=== PATIENT | female | born 1950 | race Caucasian/White ===

== ENCOUNTER 2022-02-28 13:06 | Emergency (ER) | payer OTHER, SELFPAY ==
[2022-02-28 13:22] VITALS: BP 168/78; PULSE 80; RESP 18; TEMP 36.1; O2SAT 97; BMI 22.9
[2022-02-28] MEDS: Acetaminophen 325 MG TABLET 650 MG PO (13:34)
--- OUTSIDE RECORDS SUMMARY | 2022-02-28 15:27 | XMS_ITS | Continuity of Care Document ---
:1950 Author Organization [facility] Address [address] [place] [address]- Care Team Providers
--- NOTE | 2022-02-28 16:10 | ED.EXTPRO ---
HPI - Extremity Problem General Chief complaint: Extremity Injury, Upper Stated complaint: R wrist inj Time Seen by Provider: 02/28/22 15:41 Source: patient Mode of arrival: ambulatory Limitations: no limitations History of Present Illness HPI Narrative: Patient presents emergency department for evaluation of right wrist pain. She states that she slipped on the last 2 steps of her stairs catching herself in weight on to her right wrist. She denies any head strike with this. Denies any loss of consciousness. Denies any numbness or tingling to the arm or hand. Pain is localized throughout the wrist. Is made worse with movement. Has swelling and bruising. Denies any prior injury to this wrist. Related Data Previous Rx's Medication Instructions Recorded tramadol 50 mg tablet 50 mg PO Q8H PRN pain #10 tabs 02/28/22 Allergies Allergy/AdvReac Type Severity Reaction Status Date / Time latex [LATEX] Allergy Mild RASH Unverified 02/07/20 15:03 procaine [From NOVOCAIN] Allergy Mild PASSES OUT Unverified 02/07/20 15:03 Penicillins Allergy Unconscious Verified 02/28/22 13:29 NARCOTICS Allergy Mild HIVES Uncoded 02/07/20 15:03 Review of Systems Review of Systems: Constitutional: No fever, chills, weakness or fatigue. Skin: No rash or itching. Cardiovascular: No chest pain, chest pressure or chest discomfort. No palpitations or pedal edema. Respiratory: No shortness of breath, cough or sputum production. Gastrointestinal: No nausea, vomiting or diarrhea. No abdominal pain Genitourinary: No burning micturition. No urinary frequency or incontinence. Musculoskeletal: Positive wrist pain Psychiatric: No depression or anxiety. Yes all other systems are reviewed and are negative [facility] Past Medical History Attestation statement: The following information was validated with the patient. Source: old records reviewed Social History Social History Advance Directives: No Advance Directives Information Provided: Yes Physical Exam Vital Signs: Vital Signs: Last Vital Signs Temp 97 F 02/28/22 13:22 Pulse 80 02/28/22 13:22 Resp 18 02/28/22 13:22 BP 168/78 H 02/28/22 13:22 Pulse Ox 97 10/09/22 13:22 O2 Del Method 02/28/22 13:22 BMI result Body Mass Index 22.9 Appearance: Alert.?Oriented to person, place and time. No acute distress.?Normal affect. Eyes: Pupils equal, round and reactive to light.? ENT: Pharynx normal.?? Neck: Normal inspection.? Neck supple.?? CVS: Heart sounds normal. Normal heart rate and rhythm.? Pulses normal.?? Respiratory: No respiratory distress.? Lung sounds clear to auscultation bilaterally?? Abdomen: Soft and non-tender. Skin: Skin warm and dry.? Normal skin color.? Extremities: No lower extremity edema.? palpable 2+ radial and ulnar pulse bilaterally. Right wrist with localized swelling, bruising, and mild deformity. Full range of motion to the digits in the right hand. Sensation is intact. Neuro: Moves all extremities spontaneously. Sensation intact bilaterally. CN II-XII intact. No focal neuro deficits. Ambulates with normal steady gait. Course Course Course Narrative: Patient is a 72-year-old female who presents emergency department for evaluation after mechanical fall landing onto an outstretched hand. Extremities neurovascularly intact distally. There is some slight deformity upon examination. XR reveals a displaced comminuted intra-articular distal radial fracture and fracture of the ulnar-styloid. Upon examination of the x-ray films, would not be able to reduce this fracture given the comminuted nature. Reviewed this film with ED attending Dr. Ledesma who agrees. discussed with patient and family plan of care, she was placed in a sugar-tong splint, review remained neurovascularly intact distally after application. Discussed use of Tylenol as needed for pain, elevation of the arm, rest. Keeping the splint in place until seen by Orthopedics. Will provide patient with contact information for orthopedic office associated with our hospital. We reviewed worrisome signs and symptoms to return back to the emergency department for. Will send with a short prescription for tramadol as needed for severe pain. Patient verbalizes understanding of all of the above findings and was discharged home in stable condition. MDM - Extremity (Nontraumatic) Imaging Data wrist XR: Radiologist's impression: XR/XR wrist RT min 3V IMPRESSION: Displaced comminuted intra-articular distal radial fracture. ? Fracture ulnar styloid. Discharge Plan Discharge Clinical Impression: Distal radius fracture, right Qualifiers: Encounter type: initial encounter Fracture type: closed Fracture of right ulnar styloid Qualifiers: Encounter type: initial encounter Fracture type: closed Fracture alignment: displaced Qualified Code(s): S52.611A - Displaced fracture of right ulna styloid process, initial encounter for closed fracture Patient Disposition: Home, Self-Care Additional Instructions: the splint should remain in place until you are evaluated by Orthopedics, please do not get this wet. Be sure to rest, apply ice, elevate your arm on pillows above the level of your chest at all times possible. You can take Tylenol 500 mg, 2 tablets (1,000mg) every 4-6 hours as needed for pain, but not to exceed 3 doses daily (3,000mg). For severe pain you may take tramadol as prescribed, this medication may make you drowsy should not drive, drink alcohol while taking this medication. Please take this medication with there is someone else at home with the was well. As it can make you unsteady. You will need to follow-up with an orthopedic department this week. You have been given contact information for the orthopedic office associated with our hospital. Return back to emergency department with any new or worsening symptoms or concerns such as severe worsening pain, swelling, inability to move your fingers, numbness or tingling to the fingers, discoloration to the fingers.? Prescriptions: New tramadol 50 mg tablet 50 mg PO Q8H PRN (Reason: pain) Qty: 10 0RF Referrals: Tisha Jon PA-C [Physician Conditioning Room Worker] - Lesly Moulton MD [Primary Care Provider] - Interventions: ED Discharge Assessment Last Done: 02/28/22 17:35 Discharge Date/Time: 02/28/22 17:36
== END 2022-02-28 17:36 | disposition home or self-care (01) ==
PROVIDERS: Emergency Provider Emergency Medicine; PCP Internal Medicine
DX: S52.611A Displaced fracture of right ulna styloid process, initial encounter for closed fracture (principal); S52.501A Unspecified fracture of the lower end of right radius, initial encounter for closed fracture; W10.9XXA Fall (on) (from) unspecified stairs and steps, initial encounter; Y93.9 Activity, unspecified; Y92.9 Unspecified place or not applicable; Y99.9 Unspecified external cause status; Z79.899 Other long term (current) drug therapy
CPT/HCPCS: 29125; 73110; 99283; 99284

== ENCOUNTER 2022-03-02 17:11 | Outpatient (REF) | payer OTHER, SELFPAY ==
--- NOTE | ~2022-03-02 | XR_ITS ---
EXAMINATION: XR WRIST, RIGHT CLINICAL INFORMATION: Pain right wrist COMPARISON: Right wrist 02/28/2022 TECHNIQUE: PA, lateral, and oblique views of the right wrist. FINDINGS: There is a comminuted fracture distal radius with intra-articular extension. There is a ulnar styloid process displaced fracture as well. There is moderate soft tissue swelling of the wrist. XR/XR wrist RT min 3V IMPRESSION: Comminuted distal radial intra-articular fracture. Ulnar side process fracture. Soft tissue swelling right wrist
== END 2022-03-02 17:12 | disposition home or self-care (01) ==
LOC: HO.HOSX 17:11
PROVIDERS: Visit Provider Orthopaedic Surgery
DX: M25.531 Pain in right wrist (principal)
CPT/HCPCS: 73110

== ENCOUNTER → 2022-03-03 09:55 | Outpatient (BNVA) | payer OTHER, SELFPAY | PROVIDERS: PCP Internal Medicine; Visit Provider Orthopaedic Surgery | DX: S52.501A Unspecified fracture of the lower end of right radius, initial encounter for closed fracture (principal) | CPT/HCPCS: 99202 ==

== ENCOUNTER 2022-03-04 09:49 | Day surgery (SDC) | payer OTHER, SELFPAY ==
[2022-03-04] VITALS (9 sets, daily range): BP systolic 153–176; BP diastolic 73–88; PULSE 62–75; RESP 12–18; TEMP 36.2–36.7; O2SAT 94–100; BMI 22.4
--- NOTE | ~2022-03-04 | FL_ITS ---
EXAMINATION: XR FLUOROSCOPY WITH IMAGES CLINICAL INFORMATION: Distal radial fracture. The dorsal 04/2022 TECHNIQUE: Fluoroscopy performed by Cesar Delgado. Fluoroscopy time: 53.40 seconds. Cumulative Dose: 1.6294 mGy. DAP: 0.0985 Gycm2. Images: 8. FINDINGS: There is a comminuted fracture distal radius stabilized with volar plate and screws in satisfactory alignment. In addition there are 2 screws through the proximal metacarpals second and third digit likely for stabilization. FL/FL guidance in OR IMPRESSION: Stabilized comminuted distal radial fracture status post hardware placement. There are 2 screws traversing the distal radius and ulna for immobility.
[2022-03-04] MEDS: Lactated Ringers 1,000 ML 50 ML IVCONT (12:04)
--- NOTE | 2022-03-04 12:31 | P.CONAN_ITS ---
HPI - Anesthesia Eval Consult details Narrative: 72 F for ORIF right wrist PMFSH Active Problems Active Problems: All Active Problems (Updated 03/04/22 @ 10:57 by Elba Cottrell, RN) Distal radius fracture, right (Acute) Past Medical History Medical History (Updated 03/04/22 @ 10:57 by Elba Cottrell, RN) Hypertension Hypothyroidism Functional capacity: independent ambulation Family History Family history of problems with anesthesia: No Surgical History Surgical History (Updated 03/04/22 @ 10:55 by Elba Cottrell, RN) History of section History of elbow surgery Hx of colonoscopy History of Problems with Anesthesia: No Social History Social History (Updated 03/03/22 @ 10:13 by Fouzia Womack RN) Patient Tobacco Use Status: Former Tobacco user Are you DNR?: No Advance Directives: No Advance Directives Information Provided: Yes Nutrition Risks: No Nutritional Risk Current occupational status: retired Current occupation: right handed, retired from [employer] department Meds Allergies Allergy/AdvReac Type Severity Reaction Status Date / Time latex [LATEX] Allergy Mild RASH Verified 03/04/22 10:33 procaine [From NOVOCAIN] Allergy Mild PASSES OUT Verified 03/04/22 10:33 Penicillins Allergy Unconscious Verified 03/04/22 10:33 acetaminophen [From Vicodin] AdvReac Vomiting Verified 03/04/22 12:55 codeine AdvReac Shakiness Verified 03/04/22 12:55 hydrocodone [From Vicodin] AdvReac Vomiting Verified 03/04/22 12:55 oxycodone AdvReac Vomiting Verified 03/04/22 12:55 Active Medications: Current Medications Lactated Ringer's (Lr) 1,000 mls @ 50 mls/hr IVCONT .Q20H CARSON Last Admin: 03/04/22 12:04 Dose: 50 mls/hr Home Medications Medication Instructions Recorded Confirmed Last Taken Type levothyroxine 88 mcg capsule 88 mcg PO DAILY 03/03/22 03/04/22 03/04/22 History losartan 50 mg tablet 50 mg PO DAILY 03/03/22 03/04/22 03/04/22 History Calcium 600 + D(3) 03/04/22 03/04/22 03/03/22 History Exam Exam Date and Time: March 04, 2022 1231 Height,Weight and Vital Signs: Height 5 ft 5 in Weight 61.235 kg Last Vital Signs Temp 97.9 F 03/04/22 12:19 Pulse 62 03/04/22 12:19 Resp 18 03/04/22 12:19 BP 163/80 H 03/04/22 12:19 Pulse Ox 99 03/04/22 12:19 O2 Del Method 03/04/22 12:19 Airway Mallampati Class: III TM Dist: >3cm Neck ROM: Full Loose/Missing/Broken Teeth: Yes (Chipped teeth multiple ) Heart: S1,S2 Lungs: b/l breath sounds Assessment and Plan Assessment Anesthesia Assessment: Anesthesia Plan Discussed and Chart Reviewed Final Anesthetic Review Family History of Problems with Anesthesia: No History of Problems with Anesthesia: No NPO: Yes ASA Class: II Final Preanesthetic Review: Meds/Allgs Chart Reviewed, Consent Obtained/Reviewed and Anes Risks/Benef Reviewed Patient Risk: Intermediate Procedure Risk: Intermediate Anesthetic Plan Anesthetic Plan: GA Disposition: Standard PACU
--- NOTE | 2022-03-04 13:18 | PC.NURSE ---
Dr. Guerrero reviewed patient's allergies and reactions with patient and Dr. Jose lowery to order Ancef. Pulled by author.
--- NOTE | 2022-03-04 13:28 | MHC.SHP ---
Pre-Procedural Eval Section A Date of Service: 03/04/22 The patient is an INPATIENT: No Changes since office visit: No Cold of Flu in the past 2 weeks, No New Medical Problems, No Changes in Medication and No Patient answered all questions The History & Physical has been completed within 30 days and I have reviewed it.: Yes Section B Chief Complaint: displaced fx of shaft,displaced fx of R ulna stylo Allergies: Allergies Allergy/AdvReac Type Severity Reaction Status Date / Time latex [LATEX] Allergy Mild RASH Verified 03/04/22 10:33 procaine [From NOVOCAIN] Allergy Mild PASSES OUT Verified 03/04/22 10:33 Penicillins Allergy Unconscious Verified 03/04/22 10:33 acetaminophen [From Vicodin] AdvReac Vomiting Verified 03/04/22 12:55 codeine AdvReac Shakiness Verified 03/04/22 12:55 hydrocodone [From Vicodin] AdvReac Vomiting Verified 03/04/22 12:55 oxycodone AdvReac Vomiting Verified 03/04/22 12:55 Plan I have reviewed the history and physical and performed a pertinent physical examination on my patient. No changes have occurred unless specified.
--- NOTE | 2022-03-04 13:29 | P.OP_ITS ---
Operative Note Operative Note Date of Service: 03/04/22 Narrative: Operative Note Narrative: Preop diagnosis: 1. Right comminuted intra-articular Distal radius fracture Postop diagnosis: Same Procedure: 1. Right Distal radius fracture open reduction internal fixation, 3 part intra- articular 2. right wrist spanning external fixation Surgeon: Sandy Guerrero MD Anesthesia: General anesthesia plus regional block Findings: comminuted intra-articular distal radius fracture Implants: A 3 hole Accu Med volar locking plate, with 5x 2.3 mm locking pegs/screws, and 3 3.5 mm cortical screws [place] mono tube external fixator Tourniquet time: 51 minutes EBL: 5.0 ml Specimen: None Drains: None Complications: None Disposition: Brought to the recovery room in stable condition Plan: Follow-up in 10-14 days for wound check, suture removal and postop radiographs Plan and schedule trip to the operating room for removal of external fixator at postop week 3-4 Encouraged no lifting of anything heavier than a cell phone. Please encourage active and passive range of motion of the digits. Indications: The patient is a 72 year old woman with right comminuted intra-articular distal radius fracture . The risks and benefits of operative treatment, including but not limited to risk of damage to blood vessels, nerves, tendons, infection, recurrence, persistent pain or numbness, incomplete resolution of preoperative symptoms, or need for further surgery were discussed with the patient and they wished to proceed with surgery. Procedure: Once consent was obtained patient was brought back to the operating suite and placed in the operating table in a supine position. A regional block was performed by the anesthesia team. Perioperative antibiotics and anesthesia was administered by the anesthesia team. A tourniquet was applied to the proximal aspect of the right upper extremity and the limb was prepped and draped in a standard surgical fashion. The limb was elevated exsanguinated with Esmarch bandage and the tourniquet inflated to 250 mm of mercury for a total tourniquet time of 51 minutes. The FluoroScan was used throughout the case to assess our reduction, and facilitate implant placement. A gentle closed reduction was 1st performed on the patient's right distal radius fracture. I did not feel that I could get a satisfactory reduction of this highly comminuted intra-articular distal radius fracture using external fixation and percutaneous pinning. After assessing radiographically I elected to proceed with an open reduction and internal fixation that we would then supplement with external fixation. I made an 8 cm longitudinal incision over the distal aspect of the flexor carpi radialis tendon. The incision was made through the skin to the subcutaneous tissue using a 15. Blade. Then carefully dissected down to flexor carpi radialis tendon she tenotomy scissors. The FCR tendon sheath was then incised longitudinally using tenotomy scissors under direct visualization. The FCR tendon was then retracted ulnarly. I then made a longitudinal incision in the volar forearm fascia through the floor of FCR tendon sheath using tenotomy scissors under direct visualization. I identified the interval between the radial artery and the flexor tendons. This interval was developed further with my index finger, releasing some of the muscular fibers of the flexor pollicis longus. A dull weatlander retractor was then placed. I then created an ulnarly based flap of the pronator quadratus by releasing the radial and distal edges using a 15. Blade. A Ferrer elevator was used to elevate the pronator quadratus from the volar surface of the distal radius. This then revealed to us our distal radius fracture. Again it was highly comminuted shortened and displaced. Some muscle was removed from in between the fracture fragments using a small rongeur or. I also performed a tenotomy of the brachioradialis tendon from the radial styloid to facilitate our reduction of that fragment. This was done usi ng a 15. Blade and tenotomy Scissors. An open reduction was then performed on our distal radius fracture. our reduction was provisionally held using a 0.062 K-wire placed retrograde through the radial styloid and across the fracture into the shaft of the radius. I then placed a short Standard 3 hole Accu Med volar locking plate on the volar surface of the distal radius. I placed a single K-wire through the distal aspect of the plate and into the distal radius. This was assessed using fluoroscopic images. I was satisfied with the placement of our plate. I then placed 5x 2.3 mm locking screws/pegs in the distal aspect of the plate and distal radius by 1st drilling bicortically with a 1.8 mm drill bit, measuring with a depth gauge, and placing the appropriate length locking screws/pegs. The placement of our plate and screws was then assessed again using fluoroscopic images. The once satisfied with the placement of the volar locking plate and screws on the distal aspect of the distal radius, the plate was then reduced to the shaft of the radius. The radial styloid K-wire was also removed. I then placed 3 x 3.5 mm cortical screws to the proximal aspect of the plate and into the shaft of the radius. This was done by 1st drilling bicortically with a 2.8 mm drill bit, measuring with a depth gauge, and placing the appropriate length screw. Final radiographs were then obtained. The DRUJ was assessed and found to be stable on exam. I was satisfied with our reduction and placement of all implants. At this point the wound was irrigated with normal saline. The pronator quadratus was reduced back over the volar locking plate using some 3-0 Vicryl suture material. The tourniquet was then deflated and hemostasis was obtained with a brief period of local pressure and bipolar monopolar electrocautery. The subcutaneous layer was then reapproximated using some 4-0 Vicryl suture, and the skin edges were reapproximated using some 5 0 Prolene suture. The wound was then infiltrated with some 1% lidocaine with epinephrine postop pain control. Given the degree of comminution I felt that on loading the joint during the 1st few weeks of healing would be prudent. I therefore placed a [employer] monitor to wrist spanning external fixator. Half pins were placed in the 2nd metacarpal and in the radial aspect of the radial shaft using the standard technique. Th rachel were placed after making incisions and dissecting down to the cortex. Soft tissue protectors were used during the placement of these half pins. The wounds were irrigated and the skin edges reapproximated with some 5 0 Prolene suture material. Thumb on a 2 was then affixed to the 4 half pins, the wrist was placed in appropriate position with a small amount of traction to on load the joint, and the set was secured Using the T wrench. Have pin placement was also assessed using orthogonal fluoroscopic images and I was satisfied with the placement of all half pins and with our external fixator. A sterile dressing and no splint was applied, allowing for easy range of motion of the digits.. The patient appears to have tolerated the procedure well and with no complications. All digits were well vascularized conclusion of the case.
== END 2022-03-04 18:15 | disposition home or self-care (01) ==
PROVIDERS: PCP Internal Medicine; Visit Provider Orthopaedic Surgery
PROC: (CPT 25609; principal; 2022-03-04 11:40)
DX: S52.571A Other intraarticular fracture of lower end of right radius, initial encounter for closed fracture (principal); W10.8XXA Fall (on) (from) other stairs and steps, initial encounter; Y93.89 Activity, other specified; Y92.018 Other place in single-family (private) house as the place of occurrence of the external cause; Y99.8 Other external cause status; I10 Essential (primary) hypertension; E03.9 Hypothyroidism, unspecified; Z79.899 Other long term (current) drug therapy; Z88.0 Allergy status to penicillin; Z88.8 Allergy status to other drugs, medicaments and biological substances; Z91.040 Latex allergy status; Z87.891 Personal history of nicotine dependence
CPT/HCPCS: 25609; C1713; C1769; J0131; J0690; J1100; J2250; J2405; J2795; J3010

== ENCOUNTER 2022-03-15 20:53 | Outpatient (REF) | payer OTHER, SELFPAY ==
--- NOTE | ~2022-03-15 | XR_ITS ---
EXAMINATION: XR WRIST, RIGHT CLINICAL INFORMATION: Right wrist pain. COMPARISON: 02/28/2022 and intraoperative fluoroscopic images from 03/04/2022. TECHNIQUE: PA, lateral, and oblique views of the right wrist. FINDINGS: Distal radial displaced fracture with intra-articular extension has been stabilized with volar side plate and screws. Alignment appears satisfactory and hardware appropriate in position. Persistently displaced radial aspect fracture fragment is unchanged from intraoperative study. External stabilizing device is now in place, distal screws appear appropriately positioned through the proximal second and third metacarpals. The distal radial screw tip is associated with new thin, mildly displaced butterfly fracture fragment. More proximal radial screw is well-positioned. Ulna styloid fracture is unchanged. 4.4 mm scapholunate joint space widening appears more pronounced than on previous imaging. Diffuse soft tissue swelling seen about the wrist. XR/XR wrist RT min 3V IMPRESSION: Stabilization distal right radial fracture with interval scapholunate widening and new distal radial fracture associated with external stabilizing device screw.
== END 2022-03-15 20:54 | disposition home or self-care (01) ==
LOC: HO.HOSX 20:53
PROVIDERS: Visit Provider Orthopaedic Surgery
DX: M25.531 Pain in right wrist (principal)
CPT/HCPCS: 73110

== ENCOUNTER 2022-03-29 05:44 | Day surgery (SDC) | payer OTHER, SELFPAY ==
--- NOTE | 2022-03-26 08:16 | HO.ANESPROP2 ---
Documented by User: Ruby Hanna NP 03/26/22 08:18 HPI - Anesthesia Eval Consult details Narrative: 72yo F for Right Removal Orthopedic Hardware distal radius (ex-fix) s/p Radius ORIF 03/04/22 with GA-LMA 3 PMFSH Active Problems Active Problems: All Active Problems (Updated 03/16/22 @ 14:28 by Pipe De Leon) Distal radius fracture, right (Acute) Fracture of right ulnar styloid (Acute) Past Medical History Medical History Hypertension Hypothyroidism Family History Family history of problems with anesthesia: No Surgical History Surgical History H/O right wrist surgery History of section History of elbow surgery Hx of colonoscopy History of Problems with Anesthesia: No Social History Social History (Updated 03/03/22 @ 10:13 by Fouzia Womack RN) Patient Tobacco Use Status: Former Tobacco user Quit Date: 1980 Are you DNR?: No Advance Directives: No Advance Directives Information Provided: Yes Current occupational status: retired Current occupation: right handed, retired from [employer] department Meds Allergies Allergy/AdvReac Type Severity Reaction Status Date / Time latex [LATEX] Allergy Mild RASH Verified 03/04/22 10:33 procaine [From NOVOCAIN] Allergy Mild PASSES OUT Verified 03/04/22 10:33 Penicillins Allergy Unconscious Verified 03/04/22 10:33 acetaminophen [From Vicodin] AdvReac Vomiting Verified 03/04/22 12:55 codeine AdvReac Shakiness Verified 03/04/22 12:55 hydrocodone [From Vicodin] AdvReac Vomiting Verified 03/04/22 12:55 oxycodone AdvReac Vomiting Verified 03/04/22 12:55 Home Medications Medication Instructions Recorded Confirmed Last Taken Type levothyroxine 88 mcg capsule 88 mcg PO DAILY 03/03/22 03/04/22 03/29/22 History 0130 losartan 50 mg tablet 50 mg PO DAILY 03/03/22 03/04/22 03/04/22 History Calcium 600 + D(3) 03/04/22 03/04/22 03/03/22 History Exam Exam Date and Time: March 26, 2022 0816 Assessment and Plan Assessment Anesthesia Assessment: Chart Reviewed Final Anesthetic Review Family History of Problems with Anesthesia: No History of Problems with Anesthesia: No Documented by User: Nahomi Collazo MD 03/29/22 07:02 [facility] Past Medical History Medical History Hypertension Hypothyroidism Surgical History Surgical History H/O right wrist surgery History of section History of elbow surgery Hx of colonoscopy Social History Social History (Updated 03/03/22 @ 10:13 by Fouzia Womack, NORIS) Patient Tobacco Use Status: Former Tobacco user Quit Date: 1980 Are you DNR?: No Advance Directives: No Advance Directives Information Provided: Yes Current occupational status: retired Current occupation: right handed, retired from [employer] Meds Allergies Allergy/AdvReac Type Severity Reaction Status Date / Time latex [LATEX] Allergy Mild RASH Verified 03/04/22 10:33 procaine [From NOVOCAIN] Allergy Mild PASSES OUT Verified 03/04/22 10:33 Penicillins Allergy Unconscious Verified 03/04/22 10:33 acetaminophen [From Vicodin] AdvReac Vomiting Verified 03/04/22 12:55 codeine AdvReac Shakiness Verified 03/04/22 12:55 hydrocodone [From Vicodin] AdvReac Vomiting Verified 03/04/22 12:55 oxycodone AdvReac Vomiting Verified 03/04/22 12:55 Home Medications Medication Instructions Recorded Confirmed Last Taken Type levothyroxine 88 mcg capsule 88 mcg PO DAILY 03/03/22 03/04/22 03/29/22 History 0130 losartan 50 mg tablet 50 mg PO DAILY 03/03/22 03/04/22 03/04/22 History Calcium 600 + D(3) 03/04/22 03/04/22 03/03/22 History Exam Airway Mallampati Class: II (Multiple caps, on sides, nothing soon) TM Dist: >3cm Neck ROM: Full Heart: rrr Lungs: cta Assessment and Plan Assessment Anesthesia Assessment: Anesthesia Plan Discussed and Chart Reviewed Final Anesthetic Review NPO: Yes ASA Class: II Final Preanesthetic Review: No Changes in Pt Med Stat, Meds/Allgs Chart Reviewed and Consent Obtained/Reviewed Patient Risk: Intermediate Procedure Risk: Intermediate Anesthetic Plan Anesthetic Plan: GA Disposition: Standard PACU
[2022-03-29 06:06] VITALS: BP 183/85; PULSE 71; RESP 18; TEMP 36.1; O2SAT 99; BMI 22.2
[2022-03-29 06:28] VITALS: BMI 22.2
[2022-03-29] MEDS: Lactated Ringers 1,000 ML 100 ML IVCONT (06:30)
[2022-03-29 08:23] VITALS: BP 139/75; PULSE 68; RESP 14; TEMP 36.4; O2SAT 98
[2022-03-29 08:38] VITALS: BP 149/74; PULSE 67; RESP 16; TEMP 36.4; O2SAT 98
--- NOTE | 2022-03-29 09:52 | MHC.SHP ---
Pre-Procedural Eval Section A Date of Service: 03/29/22 Section B Chief Complaint: retained external fixator Allergies: Allergies Allergy/AdvReac Type Severity Reaction Status Date / Time latex [LATEX] Allergy Mild RASH Verified 03/04/22 10:33 procaine [From NOVOCAIN] Allergy Mild PASSES OUT Verified 03/04/22 10:33 Penicillins Allergy Unconscious Verified 03/04/22 10:33 acetaminophen [From Vicodin] AdvReac Vomiting Verified 03/04/22 12:55 codeine AdvReac Shakiness Verified 03/04/22 12:55 hydrocodone [From Vicodin] AdvReac Vomiting Verified 03/04/22 12:55 oxycodone AdvReac Vomiting Verified 03/04/22 12:55 Plan I have reviewed the history and physical and performed a pertinent physical examination on my patient. No changes have occurred unless specified.
--- NOTE | 2022-03-29 09:53 | W.PM.OPN ---
Operative Note Operative Note Date of Service: 03/29/22 Narrative: Operative Note Narrative: Preop diagnosis: 1. Right distal radius fracture with retained external fixator Postop diagnosis: Same Procedure: 1. Removal of external fixator Surgeon: Sandy Guerrero MD Anesthesia: General Anesthesia Findings: half pin sites clean and without evidence of infection Implants: right wrist removal of 4 half pins and the external fixator Tourniquet time: 0 minutes EBL: 5.0 ml Specimen: none Drains: None Complications: None Disposition: Brought to the recovery room in stable condition Plan: she is going to work on some gentle [id number] exercises She may wear her Velcro wrist splint when out of the house but should remove it for wrist range of motion exercises I educated her about wound care Follow-up in next week for wound check and pre clinic radiographs OT hand therapy consult to work on gentle range of motion exercises Indications: The patient is a 72 year old woman with a right comminuted intra-articular distal radius fracture status post external fixation . The risks and benefits of operative treatment, including but not limited to risk of damage to blood vessels, nerves, tendons, infection, recurrence, persistent pain or numbness, incomplete resolution of preoperative symptoms, or need for further surgery were discussed with the patient and they wished to proceed with surgery. Procedure: Once consent was obtained patient was brought back to the operating suite and placed in the operating table in a supine position. . Perioperative antibiotics and anesthesia was administered by the anesthesia team. the T-handled duong was used to remove the external fixator from the 4 half pins. The half pin sites were clean and without any erythema drainage or evidence of infection. The half pin sites were then prepped with some Betadine. Two half pins were removed from the 2nd metacarpal and 2 half pins were removed from the radius shaft. She tolerated this well. The wounds were then cleaned with some Hibiclens. Antibiotic ointment and a light dressing was placed. The patient was then placed in a Velcro wrist splint. The patient appears to have tolerated the procedure well and with no complications. All digits were well vascularized conclusion of the case.
== END 2022-03-29 09:12 | disposition home or self-care (01) ==
PROVIDERS: PCP Internal Medicine; Visit Provider Orthopaedic Surgery
PROC: (CPT 20694; principal; 2022-03-29 07:30)
DX: S52.571D Other intraarticular fracture of lower end of right radius, subsequent encounter for closed fracture with routine healing (principal); X58.XXXD Exposure to other specified factors, subsequent encounter; Z46.89 Encounter for fitting and adjustment of other specified devices; M25.531 Pain in right wrist; I10 Essential (primary) hypertension; E03.9 Hypothyroidism, unspecified; Z79.899 Other long term (current) drug therapy; Z88.0 Allergy status to penicillin; Z88.8 Allergy status to other drugs, medicaments and biological substances; Z91.040 Latex allergy status; Z87.891 Personal history of nicotine dependence
CPT/HCPCS: 20694; J0690; J2250; J2795

== ENCOUNTER 2022-04-05 16:19 | Outpatient (REF) | payer OTHER, SELFPAY ==
--- NOTE | ~2022-04-05 | XR_ITS ---
EXAMINATION: XR WRIST, RIGHT CLINICAL INFORMATION: M25.531 - Pain in right wrist. Prior fracture. Follow-up COMPARISON: Radiographs right wrist 03/16/2022, 03/03/2022 TECHNIQUE: Right wrist is imaged in 3 views. FINDINGS: Distal radial fracture is reduced with volar side plate and screws. Hardware is intact. No destructive process or osteolysis. Alignment is near-anatomic, unchanged. Fracture line still visible. Mild widening scapholunate articulation anterior. There are old fixation and the second and third metacarpal and distal radius. XR/XR wrist RT min 3V IMPRESSION: 1. Status post reduction distal radial fracture. Hardware intact. No destructive process or osteolysis. 2. Mild widening scapholunate articulation, similar to prior exam suggesting possible tear scapholunate ligament.
== END 2022-04-05 16:20 | disposition home or self-care (01) ==
LOC: HO.HOSX 16:19
PROVIDERS: Visit Provider Orthopaedic Surgery
DX: Z13.89 Encounter for screening for other disorder (principal)

== ENCOUNTER 2022-05-12 | Outpatient (REF) | payer OTHER, SELFPAY ==
--- NOTE | ~2022-05-12 | XR_ITS ---
EXAMINATION: XR WRIST, RIGHT CLINICAL INFORMATION: M25.531 - Pain in right wrist COMPARISON: Right wrist radiographs 04/07/2022 TECHNIQUE: Right wrist is imaged in 3 views. FINDINGS: The distal radial hardware is intact. There is no interval fracture or dislocation or destructive process or osteolysis. Again, incidental fixation tracts are seen through the second metacarpal shaft and distal radial shaft. Mild widening scapholunate articulation is stable. There is an overlying fiberglass splint. XR/XR wrist RT min 3V IMPRESSION: -Hardware intact. No destructive process or osteolysis. -Stable alignment.
== END 2022-05-12 00:01 | disposition home or self-care (01) ==
LOC: HO.HOSX
PROVIDERS: Visit Provider Orthopaedic Surgery
DX: Z13.89 Encounter for screening for other disorder (principal)

== ENCOUNTER → 2022-05-12 08:33 | Outpatient (BNVA) | payer OTHER, SELFPAY | PROVIDERS: PCP Internal Medicine; Visit Provider Orthopaedic Surgery | DX: S52.501D Unspecified fracture of the lower end of right radius, subsequent encounter for closed fracture with routine healing (principal); S52.611D Displaced fracture of right ulna styloid process, subsequent encounter for closed fracture with routine healing | CPT/HCPCS: 73110; 99212 ==

== ENCOUNTER 2022-05-19 09:00 | Outpatient (RCR) | payer OTHER, SELFPAY ==
--- NOTE | 2022-03-31 12:04 | MHC.OT.EP ---
[address] [phone] Occupational Therapy Plan of Care Date of Evaluation: 03/31/22 Diagnosis: Right Distal Radius Fx Post-op ORIF w/ Ext Fix Assessment: 72 yo right hand dominant female presents almost four weeks post-op right distal radius ORIF and placement of external fixator. Prior to fall pt is very active and is Ind w/ all daily activities. She has had follow up with Dr Guerrero and external fixator has been removed, she is now wearing prefab orthosis and okay'd for gentle ROM to wrist. On assessment, surgical incisions are healing well. No redness of signs of infection. Range is limited in all planes, but moreso wrist extension, digit range is good. We have deferred rock loader strength at this time and pt educated on healing process and limitations. She will benefit from cont'd therapy services for optimal gains and functional return, we have scheduled two appts prior to her travel to [place], and she will call on her return to [facility]. Frequency and Duration: The patient will be seen 2x/wk for 6 weeks Short Term Goals: Ind w/ HEP Wrist ext to 40 degrees Wrist flex to 50 degrees Wrist pro to 60 degrees Good follow through w/ joint protection w/ light daily activities Finance Vice President Goals: Gross grasp >35lb Wrist ext 60 degress Wrist flex 65 degrees Wrist pro 80 degrees QuickDASH score <20 Pt to report ease w/ sleeping Treatment Plan: Therapeutic Exercise Therapeutic Activity Home Exercise Program Splinting Patient Education Edema Control ADL Training Ultrasound Paraffin Fluidotherapy MHP Cold Packs Joint Mobilization Soft Tissue Mobilization Kinesiotaping Electronically Signed By: CIRO Leal/Yuni CHT Please Sign and return to therapist. Thank you once again for your referral.
--- NOTE | 2022-05-05 11:09 | MHC.OT.OP ---
[address] [phone] F: [phone] Occupational Therapy Progress Note Diagnosis: Right Distal Radius Fx Post-op ORIF w/ Ext Fix Date of Surgery: 03/04/22 Date of Evaluation: 03/31/22 Treatments to Date: 7 Subjective: It's achy after all the work I did (cooking and shoveling) Pain Score: 3 Pain Location: Right Wrist Objective Measures: Pre-tx R wrist ROM: ext/ flex 40/64 pro/sup 68/80 Gross grasp R 30lb Status: Progressing Assessment: Yoselin is now about 9 weeks s/p DRF w/ surgical repair, she has MD follow up next week. She is progressing fairly well w/ good overall wrist flexion and rotation, but is still limited w/ extension and requires frequent re-ed on self stretching techniques. Strength is fair but she continues to report ease w/ daily activities, has not felt significantly limited functionally and pain is minimal. Short Term Goals: Ind w/ HEP (met) Wrist ext to 40 degrees (met) Wrist flex to 50 degrees (met) Wrist pro to 60 degrees (met) Good follow through w/ joint protection w/ light daily activities (met) Jail Goals: Gross grasp >35lb Wrist ext 60 degress Wrist flex 65 degrees Wrist pro 80 degrees QuickDASH score <20 Pt to report ease w/ sleeping Frequency and Duration: The patient will be seen 2x/wk for 6 weeks Treatment Plan: Therapeutic Exercise Therapeutic Activity Home Exercise Program Patient Education Edema Control Paraffin Fluidotherapy MHP Cold Packs Joint Mobilization Soft Tissue Mobilization Kinesiotaping Electronically Signed By: Zoey Almeida OTR/L CHT Reviewed/agree with student documentation: Therapist:
--- NOTE | 2022-05-19 09:37 | MHC.OT.DC ---
[address] [phone] F: [phone] Occupational Therapy Discharge Note Provider: Dr Sandy Guerrero Diagnosis: Right Distal Radius Fx Post-op ORIF w/ Ext Fix Date of Surgery: 03/04/22 Date of Evaluation: 03/31/22 Date of Discharge: 05/19/22 Treatments to Date: 11 Discharge Status: Achieved Goals Improved Function Independent with HEP Patient Elected to Stop Discharge Summary: Yoselin is now 11 weeks post op and doing well. Although wrist ext and pronation are still somewhat limited, she has no functional limitations and is back to normal day to day activities, pain free at most times. Pt is very encouraged and feels that she can continue on her own and has good understanding of stretches and activities. Electronically Signed By: Zoey Almeida OTR/Yuni Reviewed/agree with student documentation: Therapist: Please Sign and return to therapist, thank you for your referral.
== END 2022-05-19 09:39 | disposition home or self-care (01) ==
LOC: HO.OT 09:00
PROVIDERS: PCP Internal Medicine; Visit Provider Orthopaedic Surgery
DX: S52.501A Unspecified fracture of the lower end of right radius, initial encounter for closed fracture (principal)
CPT/HCPCS: 73110; 97110; 97140; 97165